=== PATIENT | male | born 1965 | race Caucasian/White ===

== ENCOUNTER 2023-05-28 08:44 | Emergency (ER) | payer SELFPAY ==
[2023-05-28] MEDS ORDERED: Ibuprofen 800 MG TAB ONE (09:21)
[2023-05-28] MEDS ORDERED: Ipratropium/Albuterol 3 ML NEB ONE (09:21)
[2023-05-28 09:58] LABS: SARS-CoV-2 NAA Rapid Test Not Detected (NotDetected)
== END 2023-05-28 10:18 | disposition home or self-care (01) ==
LOC: BURERS 08:44
DX: B34.9 Viral infection, unspecified (principal); F17.210 Nicotine dependence, cigarettes, uncomplicated
CPT/HCPCS: 87804; J7620; U0002